=== PATIENT | male | born 1980 | race American Indian/Alaskan Native ===

== ENCOUNTER 2023-06-30 11:35 | Emergency (ER) | payer OTHER ==
[~2023-06-30] VITALS: Ht 182.9 cm; Wt 68.0 kg
[~2023-06-30 11:35] MED LIST: LAMICTAL100 MG PO; SUBOXONE 8 MG-1 EAC1 SL
[2023-06-30 11:58] LABS: BASOPHILS 0.3 % (0-2); EOSINOPHILS 4.7 % (0-6); HEMATOCRIT 38.6 % (35.0-50.0); HEMOGLOBIN 12.7 g/dL (12.0-18.0); LYMPHOCYTES 21.5 % (24-44); MCH 27.5 (27-36); MCHC 32.9 g/dl (30-36); MCV 83.5 fl (81-99); MONOCYTES 8.3 % (0-12); NEUTROPHILS 65.2 % (39-80); PLATELET COUNT 218 K/uL (140-440); RBC 4.62 M/ul (4.3-5.7); RDW 14.3 (10.5-15.0)
[2023-06-30 12:17] LABS: ALBUMIN 3.9 g/dL (3.4-5.0); ALBUMIN/GLOBULIN RATIO 0.98 (1.1-2.4); ALCOHOL, MEDICAL <3 ng/dL (<3); ALKALINE PHOSPHATASE 104 U/L (46-116); ALT (SGPT) 19 U/L (14-59); ANION GAP 13.6 (7-21); AST (SGOT) 27 U/L (15-37); BILIRUBIN, TOTAL 0.4 ng/dL (0.2-1.0); BUN/CREATININE RATIO 10.75 (6.0-28.6); CALCIUM 9.2 mg/dL (8.5-10.1); CARBON DIOXIDE 30 mmol/L (21-32); CHLORIDE 105 mmol/L (98-107); CREATININE, SERUM 0.93 mg/dL (0.70-1.30); GLOMERULAR FILTRATION RATE,EST 106 mL/min (>60); POTASSIUM 3.6 mmol/L (3.5-5.1); PROTEIN, TOTAL 7.9 g/dL (6.4-8.2); TSH, 3RD GENERATION 1.097 uIU/mL (0.358-3.740); UREA NITROGEN 10 mg/dL (7-18)
[2023-06-30 12:27] LABS: ACETAMINOPHEN 0 ug/mL (10-30); SALICYLATE 0.7 mg/dL (2.8-20.0)
[2023-06-30] MEDS ORDERED: NARCAN4 MG NAS (17:03)
[2023-06-30 17:09] VITALS: BP 121/89
== END 2023-06-30 17:19 | disposition home or self-care (01) ==
LOC: ED 11:35
PROVIDERS: Emergency Medicine
DX: T40.411A Poisoning by fentanyl or fentanyl analogs, accidental (unintentional), initial encounter (principal); T40.1X1A Poisoning by heroin, accidental (unintentional), initial encounter; J44.9 Chronic obstructive pulmonary disease, unspecified; Z79.899 Other long term (current) drug therapy
CPT/HCPCS: 36415; 80053; 80307; 84443; 85025; 99285; G0480

== ENCOUNTER 2023-12-15 02:50 | Emergency (ER) | payer OTHER ==
[~2023-12-15] VITALS: Ht 182.9 cm; Wt 70.6 kg
[~2023-12-15 02:50] MED LIST changes: +NARCAN4 MG NAS
[2023-12-15] MEDS ORDERED: lamoTRIgine 100 MG TAB PO ONE (03:00)
[2023-12-15 03:20] LABS: BILIRUBIN, URINE NEGATIVE (negative); BLOOD/HGB, URINE NEGATIVE (Negative); KETONE, URINE SMALL (Negative); LEUK ESTERASE, URINE NEGATIVE (negative); NITRITE, URINE NEGATIVE (negative); PH, URINE 6.5 (5-7)
[2023-12-15] MEDS ORDERED: LAMICTAL100 MG PO (03:25)
[2023-12-15 03:30] VITALS: BP 128/90
[2023-12-15 03:42] LABS: AMPHETAMINES, URINE NEGATIVE (NEGATIVE); BARBITURATES, URINE NEGATIVE (NEGATIVE); BENZODIAZEPINE, URINE NEGATIVE (NEGATIVE); BUPRENORPHINE, URINE POSITIVE (NEGATIVE); CANNABINOID, URINE NEGATIVE (NEGATIVE); COCAINE, URINE NEGATIVE (NEGATIVE); ECSTASY, URINE NEGATIVE (NEGATIVE); FENTANYL, URINE POSITIVE (NEGATIVE); METHADONE, URINE NEGATIVE (NEGATIVE); OPIATES, URINE NEGATIVE (NEGATIVE); OXYCODONE, URINE NEGATIVE (NEGATIVE); PHENCYCLIDINE, URINE NEGATIVE (NEGATIVE)
== END 2023-12-15 03:30 | disposition home or self-care (01) ==
LOC: ED 02:50
PROVIDERS: Internal Medicine
DX: G40.909 Epilepsy, unspecified, not intractable, without status epilepticus (principal); J44.9 Chronic obstructive pulmonary disease, unspecified; Z91.148 Patient's other noncompliance with medication regimen for other reason; Z79.899 Other long term (current) drug therapy
CPT/HCPCS: 71045; 80053; 80307; 81003; 83735; 85025; 99284; G0480